=== PATIENT | male | born 1980 | race Two or more races ===

== ENCOUNTER 2024-02-06 08:28 | Emergency (ER) | payer OTHER, SELFPAY ==
[2024-02-06] VITALS (26 sets, daily range): BP systolic 121–145; BP diastolic 74–94; PULSE 61–83; TEMP 36.9; O2SAT 93–99; BMI 30.4
--- NOTE | 2024-02-06 08:43 | XR_ITS ---
The [address] [address] Patient Name: JEFF GONZALEZ MRN: [id number] date: 1980 Sex: M Assigned Patient Location: ER Current Patient Location: ER Accession/Order Number: [id number] Exam Date: 02/06/2024 08:56 Report Date: 02/06/2024 09:15 At the request of: SUSAN LOPEZ Procedure: XR chest 1V EXAM: XR chest 1V INDICATION: sob. COMPARISON: None. TECHNIQUE: Single frontal view of the chest FINDINGS: Normal cardiomediastinal contours. No acute infiltrative process. No pleural effusion or pneumothorax. No acute osseous abnormality. XR/XR chest 1V IMPRESSION: No acute cardiopulmonary process. Electronically authenticated by: JEFFERSON ENCARNACION Date: 02/06/2024 09:15
--- NOTE | 2024-02-06 08:43 | ECG_ITS ---
The [facility] Test Date: 2024-02-06 Pat Name: JEFF GONZALEZ Department: Room: - Gender: Male Recooperer: : 1980 Requested By: [id number] Order Number: [id number] Reading MD: SB FELIZ Measurements Intervals [place] Rate: 70 P: 43 AR: 150 QRS: 42 QRSD: 74 T: 35 QT: 374 QTc: 394 Interpretive Statements 1100 Sinus rhythm 9110 normal ECG No previous ECG available for comparison Electronically Signed On 02-07-2024 5:18:06 EDT by SB FELIZ
[2024-02-06 09:24] LABS: Basophils Absolute Auto 0.1 10^3/uL (0.0-0.1); Eosinophils Percent Auto 0.5 % (0.9-7.0); Hematocrit 39.8 % (42.0-54.0); Hemoglobin 13.1 g/dL (14.0-18.0); Immature Granulocytes Abs Auto 0.02 10^3/uL (0.00-0.03); Immature Granulocytes Pct Auto 0.3 % (0.0-0.5); Lymphocytes Absolute Auto 1.4 10^3/uL (1.2-3.8); Lymphocytes Percent Auto 22.5 % (20.5-60.0); Mean Corpuscular HGB Conc 32.9 g/dL (29.9-35.2); Mean Corpuscular Hemoglobin 30.4 pg (25.9-34.0); Mean Corpuscular Volume 92.3 fL (80.0-94.0); Mean Platelet Volume 10.3 fL (9.5-13.5); Monocytes Absolute Auto 0.7 10^3/uL (0.3-0.8); Monocytes Percent Auto 11.1 % (1.7-12.0); Neutrophils Absolute Auto 3.9 10^3/uL (1.4-6.5); Neutrophils Percent Auto 64.6 % (43.0-75.0); Platelet Count 235 10^3/uL (150-450); Red Blood Count 4.31 10^6/uL (4.70-6.10)
[2024-02-06 09:39] LABS: D Dimer 0.28 mg/L FEU (<=0.59)
[2024-02-06 09:44] LABS: Alanine Aminotransferase 35 U/L (16-63); Albumin Globulin Ratio 1.2; Albumin Level 3.9 g/dL (3.4-5.0); Alkaline Phosphatase 91 U/L (46-116); Anion Gap 15.6; Aspartate Amino Transferase 22 U/L (15-37); BUN Creatinine Ratio 12.5; Bilirubin Total 0.4 mg/dL (0.2-1.0); Calcium 9.1 mg/dL (8.5-10.1); Carbon Dioxide 27.4 mmol/L (21.0-32.0); Chloride 102 mmol/L (98-107); Estimated GFR (African America >60 (>=60); Estimated GFR (Non-African Ame >60 (>=60); Globulin 3.3 g/dL; Glucose 90 mg/dL (74-106); Sodium 141 mmol/L (136-145); Total Protein 7.2 g/dL (6.4-8.2); Troponin I High Sensitivity 4.9 pg/mL (4.0-76.1)
[2024-02-06 11:27] LABS: Troponin I High Sensitivity 4.6 pg/mL (4.0-76.1)
--- NOTE | 2024-02-06 16:04 | ED_ITS ---
HPI HPI - General Adult General Chief complaint: Shortness of Breath/Dyspnea Stated complaint: SOB Time Seen by Provider: 02/06/24 08:42 Source: patient Mode of arrival: walk-in Limitations: no limitations History of Present Illness HPI narrative: The patient presented to the ER with no active symptoms he mentioned that he have shortness of breath on exertion whenever he is using the treadmill. The patient does not have any active pain at the moment when he is pressure he mentioned that he already feels some shortness of breath no chest pressure when he is walking on the treadmill. He was diagnosed with a PE almost more than 2 to 3 months ago and he is taking his medication including anticoagulation. The patient is a smoker 1 pack/day of cigarettes Related Data Allergies Allergy/AdvReac Type Severity Reaction Status Date / Time No Known Drug Allergies Allergy Verified 02/06/24 08:38 Opioid HPI Opioid Management Most Recent Opioid Data: Last Pain Scale 0 02/06/24 09:02 Last ED Pain Assessment 02/06/24 09:02 Review of Systems ROS Status of ROS 10 or more systems reviewed and unremark able except as noted in history and below Exam Narrative Exam Narrative: Nurses notes and vital signs reviewed and patient is not hypoxic. General: Well-appearing and in no apparent distress. Skin: Warm, dry, no pallor noted. No rash. Head: Normocephalic, atraumatic. Neck: Supple, non-tender. Eye: Pupils are equal, round and EOMI. No scleral icterus. Ears, Nose, Mouth, and Throat: TM are clear, no nasal mucosal hypertrophy. Oral mucosa is moist, no posterior oropharynx erythema, uvula is mid-line Cardiovascular: Regular Rate and Rhythm without murmur, gallop or rub. Respiratory: No accessory muscle use or respiratory distress. Lungs are clear to auscultation, no wheezing, rales or rhonchi Chest Wall: no tenderness Back: No midline thoracic or lumbar vertebral tenderness. No CVA tenderness Musculoskeletal: normal ROM, no calf or popliteal tenderness, no lower extremity edema/swelling GI: Abdomen is soft, non-distended. Normal bowel sounds. No masses appreciated. No tenderness to palpation. No rebound, guarding, or rigidity noted. Neurological: A&O x4. No cranial nerve dysfunction observed. No truncal ataxia. Moves all extremities. Sensation intact. Psychiatric: Cooperative and interactive. Normal mood and affect. Constitutional Vital Signs, click to edit/add: Last Vital Signs Temp 98.5 F 02/06/24 08:35 Pulse 75 02/06/24 11:40 Resp 16 02/06/24 11:49 BP 125/89 02/06/24 11:31 Pulse Ox 98 02/06/24 11:40 O2 Del Method Room Air 02/06/24 09:02 Course Vital Signs Vital signs: Vital Signs Temperature 98.5 F 02/06/24 08:35 Pulse Rate 73 02/06/24 08:35 Respiratory Rate 18 02/06/24 08:35 Blood Pressure 121/94 H 02/06/24 08:35 Pulse Oximetry 99 02/06/24 08:35 Oxygen Delivery Method Room Air 02/06/24 08:35 Temperature 98.5 F 02/06/24 08:35 Pulse Rate 75 02/06/24 11:40 Respiratory Rate 16 02/06/24 11:49 Blood Pressure 125/89 02/06/24 11:31 Pulse Oximetry 98 02/06/24 11:40 Oxygen Delivery Method Room Air 02/06/24 09:02 Medical Decision Making [facility] Narrative Medical decision making narrative: EKG showing sinus rhythm with a heart rate of [address] elevation or depression the EKG The patient CBC and chemistry and repeated troponin twice showed no acute pathology Also negative chest x-ray for any acute pathology The patient was discharged home with referral to cardiology for stress test as he have risk factors and he also was instructed to abstain from any exertion 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 The patient agrees with the following Diagnosis and Treatment plan and the patient will be discharged home. Lab Data Labs: Lab Results 02/06/24 02/06/24 Range/Units 09:15 10:50 WBC 6.0 (4.0-11.0) 10^3/uL RBC 4.31 L (4.70-6.10) 10^6/uL Hgb 13.1 L (14.0-18.0) g/dL Hct 39.8 L (42.0-54.0) % MCV 92.3 (80.0-94.0) fL MCH 30.4 (25.9-34.0) pg MCHC 32.9 (29.9-35.2) g/dL RDW 13.0 (11.0-15.0) % Plt Count 235 (150-450) 10^3/uL MPV 10.3 (9.5-13.5) fL Neut % (Auto) 64.6 (43.0-75.0) % Lymph % (Auto) 22.5 (20.5-60.0) % Mclennan % (Auto) 11.1 (1.7-12.0) % Eos % (Auto) 0.5 L (0.9-7.0) % Baso % (Auto) 1.0 (0.2-2.0) % Neut # (Auto) 3.9 (1.4-6.5) 10^3/uL Lymph # (Auto) 1.4 (1.2-3.8) 10^3/uL Mclennan # (Auto) 0.7 (0.3-0.8) 10^3/uL Eos # (Auto) 0.0 (0.0-0.7) 10^3/uL Baso # (Auto) 0.1 (0.0-0.1) 10^3/uL Abs Immat Gran (auto) 0.02 (0.00-0.03) 10^3/uL Imm/Tot Granulo (auto) 0.3 (0.0-0.5) % D-Dimer 0.28 (<=0.59) mg/L FEU Sodium 141 (136-145) mmol/L Potassium 4.0 (3.5-5.1) mmol/L Chloride 102 (98-107) mmol/L Carbon Dioxide 27.4 (21.0-32.0) mmol/L Anion Gap 15.6 BUN 13.0 (7.0-18.0) mg/dL Creatinine 1.04 (0.70-1.30) mg/dL Est GFR ( Amer) >60 (>=60) Est GFR (Non-Af Amer) >60 (>=60) BUN/Creatinine Ratio 12.5 Glucose 90 (74-106) mg/dL Calcium 9.1 (8.5-10.1) mg/dL Total Bilirubin 0.4 (0.2-1.0) mg/dL AST 22 (15-37) U/L ALT 35 (16-63) U/L Alkaline Phosphatase 91 (46-116) U/L Troponin I High Sens 4.9 4.6 (4.0-76.1) pg/mL Total Protein 7.2 (6.4-8.2) g/dL Albumin 3.9 (3.4-5.0) g/dL Globulin 3.3 g/dL Albumin/Globulin Ratio 1.2 Discharge Plan Discharge Stand Alone Forms: Portal Instructions Chief Complaint: Shortness of Breath/Dyspnea Clinical Impression: Exertional shortness of breath Patient Disposition: Home, Self-Care Time of Disposition Decision: 10:57 Condition: Good Print Language: Micronesian Instructions: Shortness of Breath (ED) Referrals: Physician,Non-Staff, [Primary Care Provider] - 1 week EMERALD MONTENEGRO [Physician] - 1 week Discharge Date/Time: 02/06/24 11:51
== END 2024-02-06 11:51 | disposition home or self-care (01) ==
PROVIDERS: Emergency Provider Emergency Medicine
DX: R06.02 Shortness of breath (principal)
CPT/HCPCS: 36415; 71045; 80053; 84484; 85025; 85378; 93005; 99285

== ENCOUNTER 2024-10-23 09:51 | Outpatient (OUT) | payer OTHER, SELFPAY ==
[2024-10-23 10:40] LABS: Alanine Aminotransferase 37 U/L (16-63); Albumin Globulin Ratio 1.2; Albumin Level 4.3 g/dL (3.4-5.0); Alkaline Phosphatase 114 U/L (46-116); Anion Gap 15.1; Aspartate Amino Transferase 23 U/L (15-37); BUN Creatinine Ratio 7.8; Bilirubin Total 0.8 mg/dL (0.2-1.0); Calcium 9.2 mg/dL (8.5-10.1); Carbon Dioxide 27.8 mmol/L (21.0-32.0); Chloride 103 mmol/L (98-107); Estimated GFR (African America >60 (>=60 mL/min/1.73m^2); Estimated GFR (Non-African Ame 60 (>=60 mL/min/1.73m^2); Globulin 3.6 g/dL; Glucose 102 mg/dL (74-106); Potassium 3.9 mmol/L (3.5-5.1); Sodium 142 mmol/L (136-145); Total Protein 7.9 g/dL (6.4-8.2)
[2024-10-23 11:06] LABS: Basophils Absolute Auto 0.1 10^3/uL (0.0-0.1); Basophils Percent Auto 1.1 % (0.2-2.0); Eosinophils Percent Auto 0.1 % (0.9-7.0); Hematocrit 44.9 % (42.0-54.0); Hemoglobin 14.7 g/dL (14.0-18.0); Immature Granulocytes Abs Auto 0.01 10^3/uL (0.00-0.03); Immature Granulocytes Pct Auto 0.1 % (0.0-0.5); Lymphocytes Absolute Auto 1.6 10^3/uL (1.2-3.8); Lymphocytes Percent Auto 21.8 % (20.5-60.0); Mean Corpuscular HGB Conc 32.7 g/dL (29.9-35.2); Mean Corpuscular Hemoglobin 29.5 pg (25.9-34.0); Mean Platelet Volume 10.8 fL (9.5-13.5); Monocytes Absolute Auto 0.4 10^3/uL (0.3-0.8); Neutrophils Absolute Auto 5.2 10^3/uL (1.4-6.5); Neutrophils Percent Auto 70.9 % (43.0-75.0); Platelet Count 275 10^3/uL (150-450); Red Blood Count 4.99 10^6/uL (4.70-6.10); Red Cell Distribution Width 12.9 % (11.0-15.0); White Blood Count 7.3 10^3/uL (4.0-11.0)
[2024-10-24 06:08] LABS: HCV Ab Non Reactive (Non Reactive); HIV Ab/p24 Ag Screen Non Reactive (Non Reactive)
== END 2024-10-23 09:52 | disposition home or self-care (01) ==
LOC: LAB 09:54
PROVIDERS: Visit Provider Nurse Practitioner Primary Care
DX: F10.20 Alcohol dependence, uncomplicated (principal); F32.1 Major depressive disorder, single episode, moderate; F41.9 Anxiety disorder, unspecified; Z71.41 Alcohol abuse counseling and surveillance of alcoholic; F39 Unspecified mood [affective] disorder
CPT/HCPCS: 36415; 80053; 85025; 86803; 87389